=== PATIENT | female | born 1990 ===

== ENCOUNTER 2017-01-03 11:46 | Inpatient (IN) | payer OTHER ==
[2017-01-03] MEDS ORDERED: Iohexol 240 (50 ml) PO ONE (12:37)
--- NOTE | 2017-01-03 12:40 | ED PDOC ---
HPI: Abdomen Time Seen by Provider: 01/03/17 12:21 Chief Complaint (Nursing): Abdominal Pain History Per: Patient (Sharp RLQ abd pain since this AM. No NVD. No dysuria or fever. ) Onset/Duration Of Symptoms: Days (1) Current Symptoms Are (Timing): Still Present Severity: Moderate Pain Scale Rating Of: 4 Location Of Pain/Discomfort: RLQ Quality Of Discomfort: Sharp Associated Symptoms: denies: Fever, Nausea, Vomiting, Diarrhea, Urinary Symptoms Exacerbating Factors: None Alleviating Factors: None Past Medical History Vital Signs: Last Vital Signs Temp 98.4 F 01/03/17 12:05 Pulse 78 01/03/17 12:05 Resp 18 01/03/17 12:05 BP 128/83 01/03/17 12:05 Pulse Ox 100 01/03/17 12:39 - Medical History PMH: No Chronic Diseases - Family History Family History: States: Unknown Family Hx - Allergies Allergies/Adverse Reactions: Allergies Allergy/AdvReac Type Severity Reaction Status Date / Time No Known Allergies Allergy Verified 01/03/17 12:19 Review of Systems ROS Statement: Except As Marked, All Systems Reviewed And Found Negative Gastrointestinal: Positive for: Abdominal Pain Physical Exam - Reviewed Nursing Documentation Reviewed: Yes Vital Signs Reviewed: Yes - Physical Exam Appears: Positive for: Non-toxic, No Acute Distress Head Exam: Positive for: ATRAUMATIC, NORMAL INSPECTION, NORMOCEPHALIC Skin: Positive for: Normal Color, Warm, DRY Eye Exam: Positive for: EOMI, Normal appearance, PERRL ENT: Positive for: Normal ENT Inspection Neck: Positive for: Normal, Painless ROM Cardiovascular/Chest: Positive for: Regular Rate, Rhythm Respiratory: Positive for: CNT, Normal Breath Sounds Gastrointestinal/Abdominal: Positive for: Bowel Sounds, Soft, Tenderness (RLQ) Back: Positive for: Normal Inspection Extremity: Positive for: Normal ROM Neurologic/Psych: Positive for: Alert, Oriented - Laboratory Results Result Diagrams: 01/03/17 12:40 01/03/17 12:40 - ECG O2 Sat by Pulse Oximetry: 100 Disposition - Clinical Impression Clinical Impression: Appendicitis - Patient ED Disposition Is Patient to be Admitted: Yes Counseled Patient/Family Regarding: Studies Performed, Diagnosis, Need For Followup, Rx Given - Disposition Disposition Time: 15:44 Condition: FAIR - Pt Status Changed To: Hospital Disposition Of: Inpatient - Admit Certification Admit to Inpatient:: After my assessment, the patient will require hospitalization for at least two midnights. This is because of the severity of symptoms shown, intensity of services needed, and/or the medical risk in this patient being treated as an outpatient. - POA Present On Arrival: None
[2017-01-03 12:57] LABS: BASO % 0.2 % (0.0-2.0); EOS # 0.1 K/uL (0.0-0.7); HEMATOCRIT 38.1 % (34.0-47.0); LYMPH # 2.2 K/uL (1.0-4.3); LYMPH % 19.9 % (20.0-40.0); MEAN CELL VOLUME 90.5 fl (81.0-99.0); MEAN CORPUSCULAR HEMOGLOBIN 30.3 pg (27.0-31.0); MEAN CORPUSCULAR HGB CONC 33.5 g/dL (33.0-37.0); MEAN PLATELET VOLUME 8.1 fl (7.2-11.7); MONO # 0.8 K/uL (0.0-0.8); MONO % 7.4 % (0.0-10.0); NEUT # 7.7 K/uL (1.8-7.0); NEUT % 71.5 % (50.0-75.0); RED CELL DISTRIBUTION WIDTH 13.1 % (11.5-14.5); WHITE BLOOD COUNT 10.8 K/uL (4.8-10.8)
[2017-01-03 13:10] LABS: ALB/GLOB RATIO 1.2 (1.0-2.1); ALKALINE PHOSPHATASE 70 U/L (38-126); ALT/SGPT 68 U/L (9-52); AST/SGOT 45 U/L (14-36); BILIRUBIN,TOTAL 0.8 mg/dl (0.2-1.3); BLOOD UREA NITROGEN 12 mg/dl (7-17); CALCIUM 9.3 mg/dL (8.4-10.2); CARBON DIOXIDE 25 mmol/L (22-30); CHLORIDE 104 mmol/L (98-107); GFR AFRICAN-AMERICAN > 60; GLUCOSE,RANDOM 79 mg/dL (65-105); POTASSIUM 4.3 MMOL/L (3.6-5.0); SODIUM 143 mmol/l (132-148); TOTAL PROTEIN 7.8 G/DL (6.3-8.2)
[2017-01-03] MEDS ORDERED: Iohexol 300 100 ML IJ ONE (14:03)
[2017-01-03] MEDS ORDERED: Sodium Chloride 0.9% 50 ML IV ONE (14:04)
--- NOTE | 2017-01-03 15:47 | CT ---
PROCEDURE: CT Abdomen and Pelvis with contrast HISTORY: Abdominal pain. Duration of symptoms and precise location unknown. COMPARISON: None. TECHNIQUE: Contrast dose: 95 cc Omnipaque 300 Radiation dose: Total exam DLP = 327.48 mGy-cm. This CT exam was performed using one or more of the following dose reduction techniques: Automated exposure control, adjustment of the mA and/or kV according to patient size, and/or use of iterative reconstruction technique. FINDINGS: LOWER THORAX: Unremarkable. LIVER: Unremarkable. No gross lesion or ductal dilatation. GALLBLADDER AND BILE DUCTS: Unremarkable. PANCREAS: Unremarkable. No gross lesion or ductal dilatation. SPLEEN: Unremarkable. ADRENALS: Unremarkable. No mass. KIDNEYS AND URETERS: Unremarkable. No hydronephrosis. No solid mass. VASCULATURE: Unremarkable. No aortic aneurysm. BOWEL: Unremarkable. No obstruction. No gross mural thickening. APPENDIX: Thickening of the wall of the appendix, contrast-enhancing characteristics reflecting early/acute appendicitis. No loculated air, free air or drainable collection in the right lower quadrant or pelvis. Please refer to axial series 3 105-108. PERITONEUM: Unremarkable. No free fluid. No free air. LYMPH NODES: Unremarkable. No enlarged lymph nodes. BLADDER: Unremarkable. REPRODUCTIVE: Unremarkable uterus. Bilateral follicular/ adnexal cysts. BONES: No acute fracture. OTHER FINDINGS: None. IMPRESSION: Acute appendicitis, uncomplicated. Communication of results: I discussed findings directly with the attending physician in the emergency room Dr. Dempsey. Study completed at 15:10. Verbal results provided 15:39 January 03, 2017.
--- NOTE | 2017-01-03 15:56 | US ---
HISTORY: RLQ pain COMPARISON: None available. TECHNIQUE: Transabdominal and endovaginal ultrasound examination of the pelvis was performed. FINDINGS: UTERUS: Measures 7.7 x 3.5 x 2.1 cm. Normal in size and appearance. No fibroid or other mass lesion seen. ENDOMETRIUM: Measures 3.4 mm in diameter. Unremarkable. CERVIX: No cervical abnormality identified. RIGHT OVARY: Measures 3.2 x 2.8 x 1.5 cm. No solid mass. Normal flow. Thick wall cystic lesion at the right adnexa measures 1.4 x 1.5 x 1.2 centimeter P LEFT OVARY: Measures 2.9 x 2.9 x 1.6 cm. No solid mass. Normal flow. FREE FLUID: No significant free fluid noted. OTHER FINDINGS: None. IMPRESSION: Thick wall cystic lesion at the right adnexa measures 1.5 centimeter. Otherwise no evidence of acute pathology or suspicious lesion in the uterus and adnexa.
--- NOTE | 2017-01-03 16:53 | CP.PCM.CON ---
<Lizandro Bullard - Last Filed: 01/03/17 17:49> History of Present Illness - History of Present Illness History of Present Illness: General Surgery Consult Re: acute appendicitis HPI: 26F presented to the ED C/O suprapubic abd pain that began today at 5AM. Pain continued to get worse through the day so she decided to come to ED. Had chills last night. Decreased appetite. Denies fevers, N/V/D. Last BM was yesterday and was normal. LMP 12/13/16. Currently c/o suprapubic/R sided pain. PMH: Denies PSH: L inguinal hernia as a child SH: Occasional EtOH, no tobacco or EtOH use All: NKDA Meds: Denies Review of Systems - Review of Systems All systems: reviewed and no additional remarkable complaints except (as per HPI ) Past Patient History - Past Social History Smoking Status: Never Smoked - PSYCHIATRIC Hx Substance Use: No - SURGICAL HISTORY Hx Surgeries: No - ANESTHESIA Hx Anesthesia: No Meds Allergies/Adverse Reactions: Allergies Allergy/AdvReac Type Severity Reaction Status Date / Time No Known Allergies Allergy Verified 01/03/17 12:19 Physical Exam - Constitutional Appears: Non-toxic, No Acute Distress - Head Exam Head Exam: ATRAUMATIC, NORMOCEPHALIC - Eye Exam Eye Exam: EOMI. absent: Scleral icterus - ENT Exam ENT Exam: Mucous Membranes Dry Additional comments: trachea midline - Respiratory Exam Respiratory Exam: Respiratory Distress, NORMAL BREATHING PATTERN - Cardiovascular Exam Cardiovascular Exam: RRR, +S1 - GI/Abdominal Exam GI & Abdominal Exam: Guarding, Soft, Tenderness (suprapubic > lower quadrants). absent: Distended, Firm, Rigid Additional comments: well healed scar in L inguinal region - Rectal Exam Rectal Exam: Deferred - Extremities Exam Extremities exam: Positive for: normal capillary refill, pedal pulses present. Negative for: calf tenderness - Back Exam Back exam: absent: CVA tenderness (L), CVA tenderness (R) - Neurological Exam Neurological exam: Alert, Oriented x3 - Psychiatric Exam Psychiatric exam: Normal Affect, Normal Mood - Skin Skin Exam: Dry, Warm Results - Vital Signs Recent Vital Signs: Last Vital Signs Temp 98.4 F 01/03/17 12:05 Pulse 78 01/03/17 12:05 Resp 18 01/03/17 12:05 BP 128/83 04/20/17 12:05 Pulse Ox 100 01/03/17 15:44 - Labs Result Diagrams: 01/03/17 12:40 01/03/17 12:40 - Imaging and Cardiology CT scan - abdomen Status: Image reviewed by me, Report reviewed by me US - vaginal Status: Image reviewed by me, Report reviewed by me Assessment & Plan - Assessment and Plan (Free Text) Assessment: 26F with acute appendicitis Plan: IVF Morphine Zofran Abx To OR for Lap Appy <Yg England - Last Filed: 01/03/17 19:38> History of Present Illness - History of Present Illness History of Present Illness: Patient was seen and examined at the bedside. Agree with resident's note above Meds - Medications Medications: Current Medications Hydromorphone HCl (Dilaudid) 0.5 mg IVP Q5M PRN PRN Reason: Pain, severe (8-10) Stop: 01/03/17 23:59 Sodium Chloride (Sodium Chloride 0.9%) 1,000 mls @ 100 mls/hr IV .Q10H SHANTAL Stop: 01/04/17 17:16 Piperacillin Sod/Tazobactam (Sod 3.375 gm/ Sodium Chloride) 100 mls @ 100 mls/ hr IVPB Q6 SHANTAL Metoclopramide HCl (Reglan) 10 mg IVP ONCE PRN PRN Reason: Nausea/Vomiting Stop: 01/03/17 19:53 Morphine Sulfate (Morphine) 4 mg IVP Q4 PRN PRN Reason: Pain, moderate (4-7) Morphine Sulfate (Morphine) 2 mg IVP Q4 PRN PRN Reason: Pain, moderate (4-7) Ondansetron HCl (Zofran Inj) 4 mg IVP Q4 PRN PRN Reason: Nausea/Vomiting Ondansetron HCl (Zofran Inj) 4 mg IVP ONCE PRN PRN Reason: Nausea/Vomiting Stop: 01/03/17 19:53 Results - Vital Signs Recent Vital Signs: Last Vital Signs Temp 98.3 F 01/03/17 16:57 Pulse 76 01/03/17 16:57 Resp 17 01/03/17 16:57 BP 112/73 01/03/17 16:57 Pulse Ox 100 01/03/17 16:52 - Labs Result Diagrams: 01/03/17 12:40 01/03/17 12:40
[2017-01-03] MEDS ORDERED: Propofol 10 mg/ml Inj (20 ML) ONE (17:34)
[2017-01-03] MEDS ORDERED: Succinylcholine 200 mg/10 ml Inj IV ONE (17:35)
[2017-01-03] MEDS ORDERED: HYDROmorphone 0.5 mg/0.5 ml ISec IVP PRN (17:53)
--- NOTE | 2017-01-03 18:00 | CP.PCM.HP ---
History of Present Illness - History of Present Illness History of Present Illness: 26 yo female with no significant PMH came in complaining of sharp pain since 5am in the suprapubic area. Pain was non-radiating and continuous unaccompanied with nausea or vomiting. Patient denied dysuria, fever or chills. Present on Admission - Present on Admission Any Indicators Present on Admission: No History of DVT/PE: No History of Uncontrolled Diabetes: No Urinary Catheter: No Decubitus Ulcer Present: No Review of Systems - Review of Systems All systems: reviewed and no additional remarkable complaints except (aside from those mentioned above, 12 point system review were negative by me) Past Patient History - Past Social History Smoking Status: Never Smoked Chewing Tobacco Use: No Cigar Use: No Alcohol: None Drugs: Denies - CARDIAC Hx Cardiac Disorders: No - PULMONARY Hx Respiratory Disorders: No - NEUROLOGICAL Hx Neurological Disorder: No - HEENT Hx HEENT Problems: No - RENAL Hx Chronic Kidney Disease: No - ENDOCRINE/METABOLIC Hx Endocrine Disorders: No - HEMATOLOGICAL/ONCOLOGICAL Hx Blood Disorders: No - INTEGUMENTARY Hx Dermatological Problems: No - MUSCULOSKELETAL/RHEUMATOLOGICAL Hx Musculoskeletal Disorders: No - GASTROINTESTINAL Hx Gastrointestinal Disorders: No - GENITOURINARY/GYNECOLOGICAL Hx Genitourinary Disorders: No - PSYCHIATRIC Hx Psychophysiologic Disorder: No Hx Substance Use: No - SURGICAL HISTORY Hx Herniorrhaphy: Yes (left inguinal hernia repair, 15 yrs ago) - ANESTHESIA Hx Anesthesia: Yes Hx Anesthesia Reactions: No Meds Allergies/Adverse Reactions: Allergies Allergy/AdvReac Type Severity Reaction Status Date / Time No Known Allergies Allergy Verified 01/03/17 12:19 Physical Exam - Constitutional Appears: No Acute Distress - Head Exam Head Exam: ATRAUMATIC - Eye Exam Eye Exam: absent: Scleral icterus - ENT Exam ENT Exam: Mucous Membranes Moist - Neck Exam Neck exam: Negative for: Meningismus - Respiratory Exam Respiratory Exam: absent: Rhonchi, Wheezes, Respiratory Distress - Cardiovascular Exam Cardiovascular Exam: REGULAR RHYTHM, +S1, +S2 - GI/Abdominal Exam GI & Abdominal Exam: Soft. absent: Tenderness - Rectal Exam Rectal Exam: Deferred - Extremities Exam Extremities exam: Negative for: pedal edema - Back Exam Back exam: absent: tenderness - Neurological Exam Neurological exam: Alert, Oriented x3 - Psychiatric Exam Psychiatric exam: Normal Affect - Skin Skin Exam: Dry, Intact Results - Vital Signs Recent Vital Signs: Last Vital Signs Temp 98.3 F 01/03/17 16:57 Pulse 76 01/03/17 16:57 Resp 17 01/03/17 16:57 BP 112/73 01/03/17 16:57 Pulse Ox 100 01/03/17 16:52 - Labs Result Diagrams: 01/03/17 12:40 01/03/17 12:40 Assessment & Plan (1) Appendicitis Status: Acute Comment: place on observation in med/surg. Zosyn 3.375gm IV q 6hrs. Morphine 2mg IV q 4hrs prn for pain. keep NPO. surgical consult with Dr England
[2017-01-03] MEDS ORDERED: Lactated Ringer's 1,000 ML IV ONE (18:30)
[2017-01-03] MEDS ORDERED: Sodium Chloride 0.9% 100 ML IV ONE (18:35)
[2017-01-03] MEDS ORDERED: Piperacillin/Tazobact 3.375 gm Inj IVPB ONE (18:40)
[2017-01-03] MEDS ORDERED: ePHEDrine 50 mg/ml Inj ONE (18:51)
[2017-01-03] MEDS ORDERED: Dexamethasone 4 mg/1 ml ONE (18:57)
[2017-01-03] MEDS ORDERED: Bupivacaine 0.5% Inj(30mL) IJ ONE (19:10)
--- NOTE | 2017-01-03 19:31 | PCM.SURG1 ---
Surgeon's Initial Post Op Note - Surgeon's Notes Surgeon: Samanta Director Public Policy: PGY3 Type of Anesthesia: General Endo Pre-Operative Diagnosis: Acute appendicitis Operative Findings: inflamed appendix Post-Operative Diagnosis: Acute appendicitis Operation Performed: Laparoscopic appendectomy Specimen/Specimens Removed: appendix Estimated Blood Loss: EBL {In ML}: 5 Blood Products Given: N/A Drains Used: No Drains Post-Op Condition: Good Date of Surgery/Procedure: 01/03/17 Time of Surgery/Procedure: 18:15
--- NOTE | 2017-01-03 20:14 | OP ---
PROCEDURE DATE: 01/03/2017 PREOPERATIVE DIAGNOSIS: Acute appendicitis. POSTOPERATIVE DIAGNOSIS: Acute appendicitis. PROCEDURE: Laparoscopic appendectomy. SURGEON: Yg England MD ANESTHESIA: General with endotracheal intubation. INTRAVENOUS FLUIDS: Crystalloids. ESTIMATED BLOOD LOSS: 5 mL. INTRAOPERATIVE FINDINGS: Acute appendicitis. SPECIMEN: Appendix. BRIEF HISTORY: The patient is a very pleasant 26-year-old female who comes to the hospital complaining of 1 day duration of lower abdominal pain. Upon further investigation and a CT scan, the patient was found to have acute appendicitis. All the risks and benefits of the procedure were explained to the patient and with the patient having a full understanding of all the risks and benefits involved, informed consent was obtained and patient was taken to the operating room. DESCRIPTION OF PROCEDURE: The patient was brought into the operating room and placed supine on the operating table. Bilateral Flowtron boots were applied to patient's lower extremities. After successful induction of anesthesia and successful endotracheal intubation by the anesthesia team, Cary catheter was inserted into the patient's urinary bladder and subsequent to that, patient's abdomen was prepped with ChloraPrep stick and draped in the standard surgical fashion. Prior to the beginning of the procedure, timeout was called in the room and everyone in the room were in agreement. Using Veress needle, patient' s abdomen was entered at the umbilicus and pneumoperitoneum was achieved with good opening pressures. Once this was accomplished, using an 11 blade scalpel knife, approximately 5 mm incision was made in a longitudinal fashion in the umbilicus and subsequent to that, a 5 mm trocar was introduced into the patient' s abdomen. At that point in time, 5 mm 0-degree scope was introduced into the patient's abdomen and abdomen was inspected. Our attention was turned to the lower mid abdomen. Using an 11 blade scalpel knife, a 5 mm incision was made in a transverse fashion and subsequent to that, another 5 mm trocar was introduced into the patient's abdomen. Then, attention was turned to the left lower quadrant of the patient's abdomen. Using an 11 blade scalpel knife, a 1 cm incision was made in transverse fashion and subsequent to that, 12 mm trocar was introduced into the patient's abdomen. At that point in time, using 2 graspers, appendix was mobilized and subsequent to that, the window was created between the appendix and the mesoappendix with the [place] dissector. Once this was accomplished, mesoappendix was taken with a rasmussen load 45 mm Endo-HILDA stapler and once that was accomplished, appendix was taken with the blue load 45 mm Endo-HILDA stapler. Once the appendix was completely freed up, EndoCatch bag was introduced into the patient's abdomen, appendix was placed inside of the bag and the bag was closed. At that point in time, staple line was inspected for hemostasis. Hemostasis was confirmed. The 12 mm trocar together with EndoCatch bag and appendix were removed from the patient's abdomen and passed off to the [facility] as a specimen. Fascial layer at the left lower quadrant was closed with 1 interrupted 0 Vicryl suture on UR-6 needle and subsequent to that, patient's abdomen was fully desufflated. The rest of the trocars were removed from the patient's abdomen and skin was closed with 4-0 Monocryl suture in a running subcuticular fashion. At the end of the procedure , incision sites were infiltrated with Marcaine anesthetic. The patient's abdomen was washed and dried and a Dermabond was applied to the skin. The patient was successfully extubated by the anesthesia team. Cary catheter was removed and the patient was transferred to the stretcher and taken to the recovery room in a stable condition. At the end of the procedure, all instrument counts, needles and sponges were correct. Yg England MD cc: [id number] TT: 01/03/2017 20:13:29 en MTDD
[2017-01-03] MEDS: Piperacillin/Tazobact 3.375 GM in Sodium Chloride 0.9% 100 ML IVPB SCH (22:03)
[2017-01-03] MEDS: Sodium Chloride 0.9% 1,000 ML IV SCH (22:23)
[2017-01-04 00:24] VITALS: O2SAT 99
[2017-01-04] MEDS: Sodium Chloride 0.9% 1,000 ML IV SCH (03:15)
[2017-01-04] MEDS: Piperacillin/Tazobact 3.375 GM in Sodium Chloride 0.9% 100 ML IVPB SCH (03:56)
[2017-01-04 07:04] LABS: BASO % 0.1 % (0.0-2.0); LYMPH # 0.5 K/uL (1.0-4.3); LYMPH % 9.1 % (20.0-40.0); MEAN CELL VOLUME 90.9 fl (81.0-99.0); MEAN PLATELET VOLUME 8.6 fl (7.2-11.7); MONO # 0.2 K/uL (0.0-0.8); MONO % 2.6 % (0.0-10.0); NEUT # 5.2 K/uL (1.8-7.0); NEUT % 88.2 % (50.0-75.0); NRBC % 0.1 % (0.0-0.0); PLATELET COUNT 177 K/uL (130-400); RED CELL DISTRIBUTION WIDTH 12.9 % (11.5-14.5); WHITE BLOOD COUNT 5.9 K/uL (4.8-10.8)
[2017-01-04 07:13] LABS: BLOOD UREA NITROGEN 9 mg/dl (7-17); CALCIUM 9.3 mg/dL (8.4-10.2); CARBON DIOXIDE 23 mmol/L (22-30); CHLORIDE 104 mmol/L (98-107); GFR AFRICAN-AMERICAN > 60; GLUCOSE,RANDOM 132 mg/dL (65-105); POTASSIUM 4.7 MMOL/L (3.6-5.0); SODIUM 136 mmol/l (132-148)
[2017-01-04 07:32] VITALS: BP 102/61; PULSE 71; RESP 20; TEMP 98.2
[2017-01-04 08:12] LABS: NEUTROPHIL 86 % (42-75); TOTAL CELLS COUNTED 100
--- NOTE | 2017-01-04 09:10 | CP.PCM.PN ---
Subjective - Date & Time of Evaluation Date of Evaluation: 01/04/17 Time of Evaluation: 09:07 - Subjective Subjective: General Surgery - Dr. England Pt S&E. CANDIDA. Pt states her pain is much improved after surgery yesterday. She is tolerating regular diet, ambulating, no fevers/chills, nausea/vomiting, SOB/CP. Objective - Vital Signs/Intake and Output Vital Signs (last 24 hours): Temp Pulse Resp BP Pulse Ox 98.2 F 71 20 102/61 99 01/04/17 07:31 01/04/17 07:31 01/04/17 07:31 01/04/17 07:31 01/04/17 07:31 Intake and Output: 01/04/17 01/04/17 06:59 18:59 Intake Total 150 Balance 150 - Medications Medications: Current Medications Sodium Chloride (Sodium Chloride 0.9%) 1,000 mls @ 100 mls/hr IV .Q10H SHANTAL Stop: 01/04/17 17:16 Last Admin: 01/04/17 03:15 Dose: Not Given Piperacillin Sod/Tazobactam (Sod 3.375 gm/ Sodium Chloride) 100 mls @ 100 mls/ hr IVPB Q6 SHANTLA Last Admin: 01/04/17 03:56 Dose: 100 mls/hr Morphine Sulfate (Morphine) 4 mg IVP Q4 PRN PRN Reason: Pain, moderate (4-7) Morphine Sulfate (Morphine) 2 mg IVP Q4 PRN PRN Reason: Pain, moderate (4-7) Last Admin: 01/03/17 22:08 Dose: 2 mg Ondansetron HCl (Zofran Inj) 4 mg IVP Q4 PRN PRN Reason: Nausea/Vomiting - Labs Labs: 01/04/17 06:44 01/04/17 06:44 - Constitutional Appears: No Acute Distress - Head Exam Head Exam: ATRAUMATIC, NORMOCEPHALIC - Respiratory Exam Respiratory Exam: NORMAL BREATHING PATTERN. absent: Respiratory Distress - GI/Abdominal Exam GI & Abdominal Exam: Soft. absent: Distended, Guarding, Tenderness, Rebound Additional comments: surgical incisions C/D/I with dermabond - Neurological Exam Neurological Exam: Alert, Oriented x3 - Psychiatric Exam Psychiatric exam: Normal Affect, Normal Mood - Skin Skin Exam: Dry, Intact Assessment and Plan - Assessment and Plan (Free Text) Assessment: 26yo F s/p laparoscopic Appendectomy, POD #1 -Clear for discharge from surgical standpoint -Pt may resume regular diet and light activities, avoid any heavy lifting > 10lbs for 4 weeks. Pt may take Motrin or Tyenol as needed for pain. She may shower and wash with soap and water, do not remove dermabond glue and no bathing or swimming. F/U in office with Dr. England in [address] Samanta Chamorro PGY2
--- NOTE | 2017-01-04 09:40 | CP.PCM.DIS ---
Provider - Provider Date of Admission: 01/03/17 16:15 Attending physician: Juan J Campo MD Consults: Surgery : Dr England Time Spent in preparation of Discharge (in minutes): 20 Diagnosis - Discharge Diagnosis (1) Appendicitis Status: Acute (2) S/P laparoscopic appendectomy Status: Acute Hospital Course - Lab Results Lab Results: Most Recent Lab Values WBC 5.9 K/uL (4.8-10.8) 01/04/17 06:44 RBC 3.85 Mil/uL (3.80-5.20) 01/04/17 06:44 Hgb 11.5 g/dL (12.0-16.0) L 01/04/17 06:44 Hct 35.0 % (34.0-47.0) 01/04/17 06:44 MCV 90.9 fl (81.0-99.0) 01/04/17 06:44 MCH 30.0 pg (27.0-31.0) 01/04/17 06:44 MCHC 33.0 g/dL (33.0-37.0) 01/04/17 06:44 RDW 12.9 % (11.5-14.5) 01/04/17 06:44 Plt Count 177 K/uL (130-400) 01/04/17 06:44 MPV 8.6 fl (7.2-11.7) 01/04/17 06:44 Neut % (Auto) 88.2 % (50.0-75.0) H 01/04/17 06:44 Lymph % (Auto) 9.1 % (20.0-40.0) L 01/04/17 06:44 Ceiba % (Auto) 2.6 % (0.0-10.0) 01/04/17 06:44 Eos % (Auto) 0.0 % (0.0-4.0) 01/04/17 06:44 Baso % (Auto) 0.1 % (0.0-2.0) 01/04/17 06:44 Neut # 5.2 K/uL (1.8-7.0) 01/04/17 06:44 Lymph # 0.5 K/uL (1.0-4.3) L 01/04/17 06:44 Ceiba # 0.2 K/uL (0.0-0.8) 01/04/17 06:44 Eos # 0.0 K/uL (0.0-0.7) 01/04/17 06:44 Baso # 0.0 K/uL (0.0-0.2) 01/04/17 06:44 Neutrophils % (Manual) 86 % (42-75) H 01/04/17 06:44 Lymphocytes % (Manual) 10 % (20-50) L 01/04/17 06:44 Monocytes % (Manual) 4 % (0-10) 01/04/17 06:44 Platelet Estimate Normal (NORMAL) 01/04/17 06:44 Hypochromasia (manual) Slight 01/04/17 06:44 Anisocytosis (manual) Slight 01/04/17 06:44 Sodium 136 mmol/l (132-148) 01/04/17 06:44 Potassium 4.7 MMOL/L (3.6-5.0) 01/04/17 06:44 Chloride 104 mmol/L (98-107) 01/04/17 06:44 Carbon Dioxide 23 mmol/L (22-30) 01/04/17 06:44 Anion Gap 14 (10-20) 01/04/17 06:44 BUN 9 mg/dl (7-17) 01/04/17 06:44 Creatinine 0.6 mg/dL (0.7-1.2) L 01/04/17 06:44 Est GFR ( Amer) > 60 01/04/17 06:44 Est GFR (Non-Af Amer) > 60 01/04/17 06:44 Random Glucose 132 mg/dL (65-105) H 01/04/17 06:44 Calcium 9.3 mg/dL (8.4-10.2) 01/04/17 06:44 Total Bilirubin 0.8 mg/dl (0.2-1.3) 01/03/17 12:40 AST 45 U/L (14-36) H 01/03/17 12:40 ALT 68 U/L (9-52) H 01/03/17 12:40 Alkaline Phosphatase 70 U/L (38-126) 01/03/17 12:40 Total Protein 7.8 G/DL (6.3-8.2) 01/03/17 12:40 Albumin 4.3 g/dL (3.5-5.0) 01/03/17 12:40 Globulin 3.5 gm/dL (2.2-3.9) 01/03/17 12:40 Albumin/Globulin Ratio 1.2 (1.0-2.1) 01/03/17 12:40 - Hospital Course Hospital Course: 26 y/o lady , no significant PMH, came in bec of lower abdominal pain. CT of the abdomen done showed Acute Appendicitis. Pt was dmitted to Med Surg, kept NPO, strated on IVF hydration, IV Zosyn and Pain meds. Surgery was consulted and pt undewernt Laparoscopic Appendectomy. No post op complication. Pain controlled. Pt tolerated PO diet. Discharge Exam - Head Exam Head Exam: ATRAUMATIC, NORMAL INSPECTION, NORMOCEPHALIC - Eye Exam Eye Exam: EOMI, Normal appearance, PERRL Pupil Exam: NORMAL ACCOMODATION - ENT Exam ENT Exam: Mucous Membranes Moist, Normal External Ear Exam - Neck Exam Neck exam: Full Rom - Respiratory Exam Respiratory Exam: NORMAL BREATHING PATTERN. absent: Respiratory Distress - Cardiovascular Exam Cardiovascular Exam: REGULAR RHYTHM, +S1, +S2 - GI/Abdominal Exam GI & Abdominal Exam: Normal Bowel Sounds, Soft, Tenderness (very minimal lower abd tenderness, small Lap AP surgical wound with dressing) - Extremities Exam Extremities exam: full ROM, normal capillary refill, normal inspection, pedal pulses present - Back Exam Back exam: FULL ROM, NORMAL INSPECTION. absent: CVA tenderness (L), CVA tenderness (R), vertebral tenderness - Neurological Exam Neurological exam: Alert, CN II-XII Intact, Normal Gait, Oriented x3, Reflexes Normal - Psychiatric Exam Psychiatric exam: Normal Affect, Normal Mood - Skin Skin Exam: Dry, Normal Color, Warm Discharge Plan - Discharge Medications Prescriptions: Amoxicillin/Clavulanate [Augmentin 875 MG-125 MG] 1 tab PO BID #10 tab traMADol [Ultram] 50 mg PO TID PRN #15 tab PRN Reason: Pain, Moderate (4-7) - Follow Up Plan Condition: GOOD Disposition: HOME/ ROUTINE Instructions: Appendicitis (DC) Additional Instructions: Pt may resume regular diet and light activities, avoid any heavy lifting >10lbs for 4 weeks. Pt may take Motrin or Tyenol as needed for pain. She may shower and wash with soap and water, do not remove dermabond glue and no bathing or swimming. F/U in office with Dr. England in 2 weeks. Referrals: [facility] [place] [Outside] Yg England MD [Staff Provider] -
== END 2017-01-04 12:43 | disposition home or self-care (01) | DRG 883 ==
LOC: H.ER 11:46 → H.ERHOLD 16:15 → H.MEDSURG1 20:52
PROC: 0DTJ4ZZ Resection of Appendix, Percutaneous Endoscopic Approach (ICD-10-PCS; principal; 2017-01-03 17:30)
DX: K35.80 Unspecified acute appendicitis (principal)

== ENCOUNTER 2018-06-24 12:58 | Emergency (ER) | payer OTHER, SELFPAY ==
[2018-06-24 13:14] VITALS: BP 118/75; PULSE 77; RESP 20; TEMP 99; O2SAT 100
--- NOTE | 2018-06-24 15:22 | ED PDOC ---
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 She reports the redness on her forearms has worsened since yesterday. Patient further states she lives and sleeps in the same bed as her partner who does not share symptoms. She reports not developing any new rashes and denies having a fever or any other medical complaint. PMD: Mat Finnegan Past Medical History Reviewed: Historical Data, Nursing Documentation, Vital Signs Vital Signs: Last Vital Signs Temp 99.0 F 06/24/18 13:10 Pulse 77 06/24/18 13:10 Resp 20 06/24/18 13:10 BP 118/75 06/24/18 13:10 Pulse Ox 100 06/24/18 13:10 - Medical History PMH: No Chronic Diseases Denies: Chronic Kidney Disease - Surgical History Other surgeries: Left inguinal hernia repair (2002) - Family History Family History: States: Unknown Family Hx - Home Medications Home Medications: Ambulatory Orders Medication Instructions Recorded Amoxicillin/Clavulanate [Augmentin 1 tab PO BID #10 tab 01/04/17 875 MG-125 MG] RX: traMADol [Ultram] 50 mg PO TID PRN #15 tab 01/04/17 Cephalexin [cephalexin] 500 mg PO Q6 #28 cap 06/24/18 - Allergies Allergies/Adverse Reactions: Allergies Allergy/AdvReac Type Severity Reaction Status Date / Time methocarbamol Allergy NAUSEA Verified 06/24/18 13:08 Review of Systems ROS Statement: Except As Marked, All Systems Reviewed And Found Negative Constitutional: Negative for: Fever Skin: Positive for: Other (bug bites to upper back, left and right forearm, left hand) Physical Exam - Reviewed Nursing Documentation Reviewed: Yes Vital Signs Reviewed: Yes - Physical Exam Appears: Positive for: Well, No Acute Distress Head Exam: Positive for: ATRAUMATIC, NORMOCEPHALIC Skin: Negative for: Normal Color (erythematous papules on the upper back, left and right forearm, and left hand) Eye Exam: Positive for: Normal appearance Cardiovascular/Chest: Positive for: Regular Rate, Rhythm. Negative for: Murmur Respiratory: Positive for: Normal Breath Sounds. Negative for: Respiratory Distress Back: Positive for: Normal Inspection. Negative for: L CVA Tenderness, R CVA Tenderness, Vertebral Tenderness Extremity: Positive for: Normal ROM, Other (right forearm and dorsal left hand has moderate surrounding erythema without breaking skin integrity, streaking vesicles, or pustules). Negative for: Tenderness, Deformity, Swelling Neurologic/Psych: Positive for: Alert, Oriented (x3) - ECG O2 Sat by Pulse Oximetry: 100 (RA) Pulse Ox Interpretation: Normal - Progress ED Course And Treament: Provider advised patient to apply hydrocortisone to rash except to the right forearm and left hand area and take prescribed medications. Provider also advised patient to follow up with [facility] but return to emergency department if fever or redness worsens. Medical Decision Making Medical Decision Making: Initial Time: 13:36 Initial Plan: Provider advised patient to apply hydrocortisone to rash except to the right forearm and left hand area and take prescribed medication. Provider also advised patient to follow up with [facility] but return to emergency department if fever or redness worsens. Scribe Attestation: Documented by Alexis Jurado, acting as a scribe for Ike Bean Provider Scribe Attestation: All medical record entries made by the Scribe were at my direction and personally dictated by me. I have reviewed the chart and agree that the record accurately reflects my personal performance of the history, physical exam, medical decision making, and the department course for this patient. I have also personally directed, reviewed, and agree with the discharge instructions and disposition. Disposition - Clinical Impression Clinical Impression: Insect bite, Cellulitis - Patient ED Disposition Is Patient to be Admitted: No - Disposition Referrals: [facility] [Outside] Disposition: Routine/Home Disposition Time: 14:57 Condition: STABLE Additional Instructions: ASHWINI GARCIA, thank you for letting us take care of you today. Your provider was Honorio Miles III, DO and you were treated for BITE. The emergency medical care you received today was directed at your acute symptoms. If you were prescribed any medication, please fill it and take as directed. It may take several days for your symptoms to resolve. Return to the Emergency Department if your symptoms worsen, do not improve, or if you have any other problems. Please contact your doctor or call one of the physicians/clinics you have been referred to that are listed on the Patient Visit Information form that is included in your discharge packet. Bring any paperwork you were given at discharge with you along with any medications you are taking to your follow up visit. Our treatment cannot replace ongoing medical care by a primary care provider outside of the emergency department. Thank you for allowing the [facility] team to be part of your care today. If you had an X-Ray or CT scan: A Radiologist will review the ED reading if any change in treatment is needed we will contact you. If you had a blood, urine, or wound culture: It will take several days for the results, if any change in treatment is needed we will contact you. If you had an STI test: It will take 48 hours for the results. Please call after 1 week if you have not heard back. Prescriptions: Cephalexin [cephalexin] 500 mg PO Q6 #28 cap Instructions: Insect Bites and Stings (DC), Cellulitis (Skin Infection), Adult (DC) Forms: SmashChart (French) Print Language: ESTONIAN
== END 2018-06-24 14:57 | disposition home or self-care (01) ==
LOC: H.ER 12:58
DX: L03.90 Cellulitis, unspecified (principal); W57.XXXA Bitten or stung by nonvenomous insect and other nonvenomous arthropods, initial encounter